=== PATIENT | male | born 1970 | race Caucasian/White ===

== ENCOUNTER 2017-02-25 18:44 | Emergency (ER) | payer OTHER ==
[~2017-02-25] VITALS: Ht 180.3 cm; Wt 113.5 kg
[~2017-02-25 18:44] MED LIST: ADVIL MIGRAINE200 MG PO; BACTRIM,SEPT1 TABLET PO; Keflex PO; NOHOMEMEDS; PANTOPRAZOLE SO40 MG PO; TYLENOL REGULA325 MG PO; Ultram PO; oxyCODONE PO
[2017-02-25 19:53] LABS: HEMATOCRIT 39.9 % (38.0-50.0); MCH 31.9 PG (29.0-34.0); MCHC 34.3 G/DL (30.0-36.0); MEAN PLAT.VOLUME 12.3 uM^3 (9.0-12.4); PLATELET COUNT 141 K/uL (156-360); RBC DIS.WIDTH-CV 12.4 % (11.8-14.6); RBC DIS.WIDTH-SD 42.5 % (39-53); RED BLOOD COUNT 4.29 M/uL (4.00-5.50); WHITE BLOOD COUNT 6.9 K/uL (4.1-10.2)
[2017-02-25 20:03] LABS: CHLORIDE 106 mEq/L (99-109); POTASSIUM 4.1 mEq/L (3.7-5.4); SODIUM 141 mEq/L (136-147)
[2017-02-25 20:05] LABS: GLUCOSE 117 mg/dL (70-99)
[2017-02-25 20:06] LABS: ANION GAP 18 MEQ/L (2-14)
[2017-02-25 20:07] LABS: TOTAL BILIRUBIN 0.3 mg/dL (0.0-1.0)
[2017-02-25 20:08] LABS: ALKALINE PHOSPHATASE 99 IU/L (3-129)
[2017-02-25 20:09] LABS: GFR ESTIMATE (CALCULATED) > 59 mL/min/
[2017-02-25 20:10] LABS: UREA NITROGEN (BUN) 8 mg/dL (9-23)
[2017-02-25 20:26] LABS: ADD MIUA? YES; BILIRUBIN NEGATIVE; BLOOD NEGATIVE; COLOR YELLOW ((YELLOW)); GLUCOSE (STRIP) NEGATIVE; KETONES NEGATIVE; LEUKOCYTES NEGATIVE; NITRITE NEGATIVE; PROTEIN (STRIP) 30; SPECIFIC GRAVITY 1.026 (1.000-1.030); UROBILINOGEN 0.2 MG/DL (0.2-1.0)
[2017-02-25 20:47] LABS: BACTERIA NONE SEEN /HPF; EPITHELIAL CELLS RARE /HPF; MUCUS TRACE /LPF; RED BLOOD CELLS 0-5 /HPF (0-5); UCUL ADDED? NO; WHITE BLOOD CELLS 0-5 /HPF (0-5)
[2017-02-25 21:13] LABS: LIPASE 25 U/L (1.0-51.0)
[2017-02-25] MEDS ORDERED: BENTYL10 MG PO (23:07)
[2017-02-25] MEDS ORDERED: NAPROXEN500 MG PO (23:07)
[2017-02-25 23:58] VITALS: BP 157/52
== END 2017-02-25 23:59 | disposition home or self-care (01) ==
LOC: EME 18:44
DX: R10.31 Right lower quadrant pain (principal); Z90.49 Acquired absence of other specified parts of digestive tract; Z85.828 Personal history of other malignant neoplasm of skin; Z87.891 Personal history of nicotine dependence; Z88.0 Allergy status to penicillin
CPT/HCPCS: 74176; 80053; 81003; 83690; 85027; 99281; 99284; J1885

== ENCOUNTER 2017-07-10 16:27 | Emergency (ER) | payer OTHER ==
[~2017-07-10] VITALS: Ht 180.3 cm; Wt 111.4 kg
[~2017-07-10 16:27] MED LIST changes: +BENTYL10 MG PO; +NAPROXEN500 MG PO
[2017-07-10 18:28] LABS: ADD MIUA? YES; BILIRUBIN NEGATIVE; BLOOD SMALL; COLOR YELLOW ((YELLOW)); GLUCOSE (STRIP) NEGATIVE; KETONES NEGATIVE; LEUKOCYTES NEGATIVE; NITRITE NEGATIVE; PROTEIN (STRIP) NEGATIVE; UROBILINOGEN 0.2 MG/DL (0.2-1.0)
[2017-07-10 18:34] LABS: BACTERIA NONE SEEN /HPF; EPITHELIAL CELLS RARE /HPF; MUCUS TRACE /LPF; RED BLOOD CELLS 0-5 /HPF (0-5); UCUL ADDED? NO; WHITE BLOOD CELLS 0-5 /HPF (0-5)
[2017-07-10 19:01] LABS: HEMATOCRIT 42.1 % (38.0-50.0); MCH 32.5 PG (29.0-34.0); MCHC 35.2 G/DL (30.0-36.0); MCV 92.3 FL (86-99); MEAN PLAT.VOLUME 11.7 uM^3 (9.0-12.4); PLATELET COUNT 160 K/uL (156-360); RBC DIS.WIDTH-CV 12.6 % (11.8-14.6); RBC DIS.WIDTH-SD 42.9 % (39-53); RED BLOOD COUNT 4.56 M/uL (4.00-5.50); WHITE BLOOD COUNT 8.2 K/uL (4.1-10.2)
[2017-07-10 19:07] LABS: CHLORIDE 103 mEq/L (99-109); POTASSIUM 4.7 mEq/L (3.7-5.4); SODIUM 137 mEq/L (136-147)
[2017-07-10 19:09] LABS: GLUCOSE 101 mg/dL (70-99)
[2017-07-10 19:11] LABS: ANION GAP 7 MEQ/L (2-14); TOTAL BILIRUBIN 0.7 mg/dL (0.0-1.0)
[2017-07-10 19:13] LABS: ALKALINE PHOSPHATASE 87 IU/L (3-129); GFR ESTIMATE (CALCULATED) > 59 mL/min/ (58.99-99999)
[2017-07-10 19:14] LABS: UREA NITROGEN (BUN) 8 mg/dL (9-23)
[2017-07-10] MEDS ORDERED: PERCOCET 5/31 TABLET PO (20:06)
[2017-07-10] MEDS ORDERED: CLEOCIN300 MG PO (20:06)
[2017-07-10 20:31] VITALS: BP 140/62
[2017-07-12 13:32] LABS: CHLAMYDIA TRACHOMATIS NEGATIVE; NEISSERIA GONORRHOEAE NEGATIVE
== END 2017-07-10 20:36 | disposition home or self-care (01) ==
LOC: EME 16:27
PROVIDERS: Physician Assistant
DX: N49.2 Inflammatory disorders of scrotum (principal); Z85.828 Personal history of other malignant neoplasm of skin; Z87.891 Personal history of nicotine dependence; Z88.0 Allergy status to penicillin
CPT/HCPCS: 76870; 80053; 81003; 85027; 87491; 87591; 99281; 99285; J1885; J7030

== ENCOUNTER 2017-07-28 16:47 | Observation (INO) | payer OTHER ==
[~2017-07-28] VITALS: Ht 180.3 cm; Wt 105.2 kg
[~2017-07-28 16:47] MED LIST changes: +CLEOCIN300 MG PO; +PERCOCET 5/31 TABLET PO
[2017-07-28 17:43] LABS: HEMATOCRIT 40.4 % (38.0-50.0); HEMOGLOBIN 14.5 G/DL (12.5-16.6); MCH 32.2 PG (29.0-34.0); MCHC 35.9 G/DL (30.0-36.0); MCV 89.8 FL (86-99); RBC DIS.WIDTH-CV 12.5 % (11.8-14.6); RBC DIS.WIDTH-SD 41.2 % (39-53); WHITE BLOOD COUNT 8.4 K/uL (4.1-10.2)
[2017-07-28 17:48] LABS: PLATELET COUNT 214 K/uL (156-360)
[2017-07-28 17:55] LABS: CHLORIDE 104 mEq/L (99-109); POTASSIUM 4.2 mEq/L (3.7-5.4); SODIUM 138 mEq/L (136-147)
[2017-07-28 17:57] LABS: GLUCOSE 87 mg/dL (70-99)
[2017-07-28 18:01] LABS: CREATININE 0.9 mg/dL (0.6-1.3); GFR ESTIMATE (CALCULATED) > 59 mL/min/ (58.99-99999)
[2017-07-28 18:02] LABS: UREA NITROGEN (BUN) 10 mg/dL (9-23)
[2017-07-28 18:09] LABS: TROP-I INTERPRETATION NEGATIVE; TROPONIN-I < 0.01 ng/mL (0.0-0.30)
[2017-07-28 18:51] LABS: ALBUMIN 4.5 g/dL (3.2-4.8)
[2017-07-28 18:54] LABS: TOTAL PROTEIN 7.2 g/dL (6.4-8.3)
[2017-07-28 18:56] LABS: TOTAL BILIRUBIN 0.4 mg/dL (0.0-1.0)
[2017-07-28 18:57] LABS: ALKALINE PHOSPHATASE 83 IU/L (3-129)
[2017-07-28 18:59] LABS: AST (GOT) 17 IU/L (2-34); DIRECT BILIRUBIN 0.1 mg/dL (0.0-0.3)
[2017-07-28 19:00] LABS: ALT (GPT) 19 IU/L (3-49)
[2017-07-28 19:01] LABS: LIPASE 15 U/L (1.0-51.0)
[2017-07-28] MEDS ORDERED: CLEOCIN300 MG PO (21:24)
[2017-07-28] MEDS ORDERED: ADVIL200 MG PO (21:24)
[2017-07-28] MEDS ORDERED: EXCEDRIN MIGRA1 EAC3 PO (21:24)
[2017-07-28] MEDS ORDERED: NIGHTTIME COLD PO (21:25)
[2017-07-28 23:33] VITALS: BP 130/72
[2017-07-29 00:41] LABS: TROP-I INTERPRETATION NEGATIVE; TROPONIN-I 0.03 ng/mL (0.0-0.30)
[2017-07-29 03:35] VITALS: BP 129/69
[2017-07-29 05:41] LABS: HEMATOCRIT 37.1 % (38.0-50.0); MCH 32.1 PG (29.0-34.0); MCV 91.6 FL (86-99); PLATELET COUNT 168 K/uL (156-360); RBC DIS.WIDTH-CV 12.7 % (11.8-14.6); RBC DIS.WIDTH-SD 42.5 % (39-53); RED BLOOD COUNT 4.05 M/uL (4.00-5.50); WHITE BLOOD COUNT 5.5 K/uL (4.1-10.2)
[2017-07-29 06:00] LABS: TROP-I INTERPRETATION NEGATIVE; TROPONIN-I < 0.01 ng/mL (0.0-0.30)
[2017-07-29 06:07] LABS: CHLORIDE 107 MEQ/L (99-109); CREATININE 0.9 MG/DL (0.6-1.3); GFR ESTIMATE (CALCULATED) > 59 mL/min/ (58.99-99999); GLUCOSE 92 mg/dL (70-99); POTASSIUM 4.7 MEQ/L (3.7-5.4); SODIUM 140 MEQ/L (136-147); UREA NITROGEN (BUN) 9 mg/dL (9-23)
[2017-07-29 09:45] VITALS: BP 132/78
[2017-07-29 11:08] VITALS: BP 124/66
[2017-07-29 16:01] VITALS: BP 189/84
[2017-07-29 18:33] VITALS: BP 134/64
[2017-07-29 19:30] VITALS: BP 129/71
[2017-07-30 00:08] VITALS: BP 151/98
[2017-07-30 03:24] VITALS: BP 133/69
[2017-07-30] MEDS ORDERED: PANTOPRAZOLE SO40 MG PO (09:15)
[2017-07-30 10:00] VITALS: BP 137/67
== END 2017-07-30 10:25 | disposition home or self-care (01) ==
LOC: EME 16:47 → EDOF 21:51 → 5WEST 21:51 → ENRESERV 21:55 → 5WEST 23:13
PROVIDERS: Hospitalist
PROC: 0DB68ZX Excision of Stomach, Via Natural or Artificial Opening Endoscopic, Diagnostic (ICD-10-PCS; principal; 2017-07-29)
DX: R07.9 Chest pain, unspecified (principal); K29.80 Duodenitis without bleeding; K26.7 Chronic duodenal ulcer without hemorrhage or perforation; B96.81 Helicobacter pylori [H. pylori] as the cause of diseases classified elsewhere; K29.70 Gastritis, unspecified, without bleeding; K25.9 Gastric ulcer, unspecified as acute or chronic, without hemorrhage or perforation; L72.9 Follicular cyst of the skin and subcutaneous tissue, unspecified; Z90.49 Acquired absence of other specified parts of digestive tract; Z87.891 Personal history of nicotine dependence; Z88.0 Allergy status to penicillin
CPT/HCPCS: 71046; 74177; 80048; 80076; 83690; 84484; 85027; 88305; 88342 TC; 93005; 99281; 99285; C9113; G0378; J1650; J2250; J2270; J2405; J3010; J7030; S0028